=== PATIENT | male | born 1985 | race African-American/Black ===

== ENCOUNTER → 2020-01-21 | Outpatient (CLI) | payer MEDICAID ==
[~2020-01-21] MED LIST: CONTRAST GIVEN. MC PRN; IOHEXOL 240 MG/ML 50ML VIAL. PO ONE; IOHEXOL 300 MG/ML 100ML VIAL. IV ONE
--- NOTE | 2020-01-21 11:23 | RAD ---
EXAM: CT Chest, Abdomen and Pelvis with IV contrast CLINICAL HISTORY: Reason: SOA on exertion/ abd pain hx: liver injury COMPARISON: None. TECHNIQUE: Helical CT of the chest, abdomen and pelvis was performed following the administration of intravenous contrast. Axial, coronal and sagittal reformatted images were generated. ---PQRS compliance statement - One or more of the following individualized dose reduction techniques were utilized for this study: 1. Automated exposure control 2. Adjustment of the mA and/or kV according to patient size 3. Use of iterative reconstruction technique--- FINDINGS: Chest: Linear opacities in the lingula likely scarring/atelectasis. No lobar consolidation. No suspicious lung nodule or mass is seen. No mediastinal or hilar lymphadenopathy. No axillary lymphadenopathy. Heart is not enlarged. No pericardial effusion. No pleural effusion or pneumothorax. Trace bilateral gynecomastia. Abdomen and Pelvis: Focal low-attenuation along falciform ligament likely focal fatty infiltration. Gallbladder is normal. No biliary ductal dilatation. Pancreas is unremarkable. Spleen is normal in appearance. Adrenal glands are unremarkable. Symmetric nephrograms. No focal renal lesion. No hydronephrosis. No hydroureter. Bladder is unremarkable. Appendix is normal. Moderate colonic stool content is seen. No small or large bowel dilatation. No bowel obstruction. A few mildly prominent retroperitoneal and iliac chain lymph nodes are seen, not enlarged by size criteria. No abdominal or pelvic lymphadenopathy. No abdominal or pelvic ascites. No abdominal or pelvic lymphadenopathy. Moderate colonic stool content is seen. No small or large bowel dilatation. Appendix is normal. No bowel obstruction. Bones: L1 and L3 height loss, age-indeterminate compression fractures. IMPRESSION: 1. Hepatic hypoattenuation likely fatty liver. 2. Moderate colonic stool content. No obstruction. 3. L1 and L3 height loss, age-indeterminate compression fractures. 4. Appendix is normal. 5. Linear opacities in the lingula likely scarring/atelectasis. No suspicious lung nodule or mass. Electronically signed by: Roberto Carlos Walker MD (01/21/2020 11:20 AM) [id number]
== END ==
LOC: CT 09:08
PROVIDERS: ATTEND Internal Medicine
DX: R06.02 Shortness of breath (principal); Z87.828 Personal history of other (healed) physical injury and trauma
CPT/HCPCS: 71260; 74177; Q9966; Q9967